=== PATIENT | male | born 1995 | race Caucasian/White ===

== ENCOUNTER 2017-11-02 20:16 | Emergency (ER) | payer OTHER ==
--- NOTE | 2017-11-02 22:12 | EDPHY ---
H & P Time Seen by Provider: 11/02/17 21:56 HPI/ROS: CHIEF COMPLAINT: Right hand abrasion, right toe injury HISTORY OF PRESENT ILLNESS: 22-year-old male with up-to-date tetanus via private vehicle complaining of right palmar hand abrasion and right 3rd toe injury when he was skateboarding, stubbed the toe when he had to get away to avoid being hit by vehicle. He was not hit by vehicle. He is able to bear weight albeit with pain. PHYSICAL EXAM (Prior to examination, patient consented to physical exam, hands were washed and my usual and customary physical exam procedures followed) 1) GENERAL: Well-developed, well-nourished, alert and oriented. Appears to be in no acute distress. 2) HEAD: Normocephalic 3) HEENT: sclera anicteric 4) LUNGS: Breathing comfortably. 5) SKIN: Right hand palmar aspect abrasion hand laceration measuring 5 mm with visible dirt contaminant. No underlying osseous discomfort. Soft compartments. No snuffbox pain. 6) MUSCULOSKELETAL: Right 3rd toe ecchymosis with no subungual hematoma, tender to palpation distal phalanx. No proximal pain. No shortening no malrotation. Smoking Status: Never smoked Constitutional: Initial Vital Signs Temperature (C) 37.1 C 11/02/17 20:22 Heart Rate 85 11/02/17 20:22 Respiratory Rate 18 11/02/17 20:22 Blood Pressure 104/79 11/02/17 20:22 O2 Sat (%) 95 11/02/17 20:22 O2 Delivery Mode Room Air Allergies/Adverse Reactions: No Known Allergies Allergy (Unverified 11/02/17 20:24) Home Medications: Medication Instructions Recorded Cephalexin [Keflex] 500 mg PO TID 4 Days cap 11/02/17 clonazePAM [klonoPIN (*)] 1 mg PO 11/02/17 fluvoxaMINE MALEATE [Fluvoxamine 250 mg PO 11/02/17 Maleate ER] MDM/Departure - MDM Imaging Results: Imaging Impressions Toe X-Ray 11/02/17 20:55 Impression: No evidence for acute osseous abnormality right third toe. Images reviewed myself Procedures: Procedure: Wound management The abrasion and laceration on the right hand were anesthetized using 0.5% bupivicaine with epinephrine prior to wound irrigation. The wound is then copiously irrigated. Will be allowed to heal via secondary intention.. Procedure: Splint A raulito-tape and postoperative shoe splint was applied by ER electrical manufacturing technician. After application of the splint I returned and re-examined the patient. The splint was adequately immobilizing the joint and distal to the splint the patient's circulation and sensation were intact. Patient shows no signs of compartment syndrome. Was given orthopedic precautions. - Depart Disposition: Home, Routine, Self-Care Clinical Impression: Abrasion of right hand Qualifiers: Encounter type: initial encounter Qualified Code(s): S60.511A - Abrasion of right hand, initial encounter Injury of right toe Qualifiers: Encounter type: initial encounter Qualified Code(s): S99.921A - Unspecified injury of right foot, initial encounter Condition: Good Instructions: Cephalexin (By mouth), Abrasion (ED), Crush Injury (ED) Additional Instructions: Return to the ER if you develop redness, swelling, discharge, warmth to the wound, red streaks going up your arm or leg, or any other symptoms that concern you. Prescriptions: Cephalexin [Keflex] 500 mg PO TID 4 Days cap Referrals: Shirley Preciado DPM [Doctor of Podiatric Medicine] - As per Instructions
[2017-11-02] MEDS ORDERED: CEPHALEXIN 500MG PREPACK#4 BTL TAKEHOME ONE (22:13)
[2017-11-02 22:44] VITALS: BP 108/81
== END 2017-11-02 22:45 | disposition home or self-care (01) ==
DX: S99.921A Unspecified injury of right foot, initial encounter (principal); S60.511A Abrasion of right hand, initial encounter; V00.131A Fall from skateboard, initial encounter; Y92.9 Unspecified place or not applicable
CPT/HCPCS: L4386